=== PATIENT | female | born 1990 | race Caucasian/White ===

== ENCOUNTER 2019-02-15 12:22 | Emergency (ER) | payer BC ==
[2019-02-15] MEDS ORDERED: Sodium Chloride 0.9% 10 ML Syringe FLUSH PRN (12:51)
[2019-02-15] MEDS ORDERED: Sodium Chloride 0.9% 1,000 ML IV ONE (12:52)
[2019-02-15] MEDS ORDERED: Morphine 4 MG/ML Syringe IVPUSH ONE (12:53)
[2019-02-15] MEDS ORDERED: Ondansetron 4 MG/2 ML SDV IV ONE (12:53)
[2019-02-15] MEDS ORDERED: Ketorolac 30 MG/ML SDV IVPUSH ONE (12:53)
[2019-02-15] MEDS ORDERED: Iopamidol 612 MG/ML 75 ML Bottle IVPUSH ONE (12:57)
[2019-02-15 13:39] LABS: ANION GAP 13.5; CHLORIDE,CL 104 mmol/L (101-111); SODIUM,NA 134 mmol/L (135-145)
[2019-02-15 14:13] VITALS: BP 117/60
[2019-02-15] MEDS ORDERED: cefTRIAXone 1 GM in Sodium Chloride 0.9% 50 ML IV ONE (14:53)
[2019-02-15] MEDS ORDERED: metroNIDAZOLE/Normal Saline 500 MG in Premix Bag 100 BAG IV ONE (14:54)
--- NOTE | 2019-02-15 21:10 | ER ---
SUBJECTIVE: The patient is a 28-year-old female who is normally healthy. She has had some flu-like symptoms over the past week and has begun having abdominal pain over the last 5 days or so. She had some nonbloody diarrhea yesterday. She denies any . She denies any dysuria, no trauma, no fevers but some chills. Has diffuse body aches and feels fatigue and tiredness. Decreased appetite. No melena or hematochezia. No hematuria. She has had some nausea, no vomiting right now. No chest pain. No shortness of breath. No HEENT issues. No neck pain or stiffness. PAST MEDICAL HISTORY: Not significant, she has denied. She is healthy. CURRENT MEDICATIONS: Include: 1. Zoloft 100 mg p.o. daily. 2. control oral contraceptives. ALLERGIES: Denied. SOCIAL HISTORY: No substance abuse. REVIEW OF SYSTEMS: Chills, fatigue, weakness, and crampy bowel discomfort comes and goes, goes up to 7 to 9 when at its worst and then sometimes is down to 1. No dysuria. No melena or hematochezia. No trauma. Please see HPI. OBJECTIVE: Vital Signs: She is afebrile, heart rate 78, blood pressure 117/60 respiratory rate 18, oxygen is 99% on room air. General: Healthy appearing, somewhat pale, very good historian. A and O x3. GCS of 15. HEENT: Normocephalic and atraumatic. No jaundice. Mucous membranes are moist. Neck: Unremarkable. Chest: Unremarkable, it is clear. Cardiovascular: RRR. Abdominal Exam: Nonspecific, general mild tenderness to exam. The patient states that currently her abdominal spasm pain is at its lowest, but when she gets really bad bout, it goes up to as high as a 9. Back: No CVAT. She is atraumatic. Extremities: Unremarkable. LAB/STUDIES: White count was normal at 6.7, she has no anemia. Platelets are normal. PMNs are mildly elevated at 79.8. No band cells. Her urinalysis shows trace occult blood, negative nitrites, trace leukocyte esterase, many bacteria. Urinalysis is negative for beta-HCG. Her urine was yellow and slightly cloudy. Her sodium is 134, potassium 3.5, BUN and creatinine are not remarkable. Her lactic acid is normal at 1.2. Total bili and LFTs are all normal. Her amylase is also normal. Her urine was sent for culture. A contrasted abdominopelvic CT was performed. It did show nonspecific enteritis with swelling of the bowel wall from the cecum to the sigmoid colon, but no bowel obstruction. No free air. No diverticulitis, no abscesses. EMERGENCY ROOM COURSE: I did discuss all the findings with the patient and her attendant mother and gave them the options to just follow symptomatic treatment or begin antibiotics or follow up in clinic. I advised that it is difficult to know whether this is a bacterial source or just a viral source, although I would lean more towards a viral enteritis and the patient had flu-like symptoms lately. After discussing with her mother, the patient decided she would like the IV antibiotics and these were given including Flagyl 500 mg and Rocephin 1 g. The patient's pain was resolved with morphine and her nausea with Zofran. She also received a liter of IV fluids. She felt markedly improved, much less pale, good tone, talkative, smiling and was feeling much better at the time of her discharge. ASSESSMENT: 1. Abdominal pain with CT showing nonspecific enteritis in the large colon, from the cecum to the sigmoid colon. 2. Nausea. 3. Volume depletion. PLAN: Prescription for Flagyl, prescription of Bactrim, prescription of Zofran and Medrol Dosepak. Advised aggressive fluid hydration. Probiotics and yogurt. Use Tylenol and ibuprofen for discomfort. Take a day or 2 off from work as needed, and work excuse given. Lay low, rest, stay with family. See PCP as needed or return for any emergent issues. [facility] /[id number]
== END 2019-02-15 16:35 | disposition home or self-care (01) ==
LOC: DL.ED 12:22
DX: K52.9 Noninfective gastroenteritis and colitis, unspecified (principal); E86.9 Volume depletion, unspecified; Z79.899 Other long term (current) drug therapy; Z79.3 Long term (current) use of hormonal contraceptives
CPT/HCPCS: 36415; 74177; 80053; 81001; 81025; 82150; 83605; 85025; 87040; 87086; 96365; 96367; 96375; 99284; J0696; J1885; J2270; J2405; J3490; J7030; J7050; Q9967

== ENCOUNTER 2021-09-26 21:34 | Emergency (ER) | payer BC ==
[2021-09-26 21:49] VITALS: BP 135/75; PULSE 82
[2021-09-26] MEDS ORDERED: Cephalexin 500 MG Cap PO ONE (22:15)
--- NOTE | 2021-09-26 22:23 | EDM.PDOC ---
ED HPI GENERAL MEDICAL PROBLEM - General Chief Complaint: Genitourinary Problem Stated Complaint: 97.5*, 11 WK , POS UTI PER PT Time Seen by Provider: 09/26/21 21:40 Source of Information: Reports: Patient History Limitations: Reports: No Limitations - History of Present Illness INITIAL COMMENTS - FREE TEXT/NARRATIVE: ED with c/o LLQ pain dexribes as sharp, better now than previous concern for UTI . States has had many in past. now 11 weeks pg. US done in clinic last week , IUP not reported concerns. Denies cramping or any spotting. Last intercourse yesterday. 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 ED EXAM, RENAL/ - Physical Exam Exam: See Below Exam Limited By: No Limitations General Appearance: Alert, Anxious Ears: Normal External Exam Nose: Normal Inspection Throat/Mouth: Normal Inspection Head: Atraumatic, Normocephalic Neck: Full Range of Motion Respiratory/Chest: No Respiratory Distress Cardiovascular: Normal Peripheral Pulses, Regular Rate, Rhythm GI/Abdominal: Normal Bowel Sounds, Soft, Non-Tender (Female) Exam: Enlarged Uterus, Heart Tones (160's via doppler) Neurological: Alert, Oriented, Normal Cognition Psychiatric: Normal Affect, Normal Mood Skin Exam: Warm, Dry, Intact, Normal Color Course - Vital Signs Last Recorded V/S: Last Vital Signs Temp 97.8 F 09/26/21 21:39 Pulse 82 10/26/21 21:39 Resp 20 09/26/21 21:39 BP 135/75 09/26/21 21:39 Pulse Ox 97 09/26/21 21:39 - Orders/Labs/Meds Orders: Active Orders 24 hr Category Date Time Status CULTURE URINE [RM] Stat Lab 09/26/21 21:46 Received cephALEXin [Keflex] Med 09/26/21 22:15 Once 500 mg PO ONETIME ONE Labs: Laboratory Tests 09/26/21 Range/Units 21:46 Urine Color Yellow (YELLOW) Urine Appearance Clear (CLEAR) Urine pH 6.5 (5.0-9.0) Ur Specific [place] 1.015 (1.005-1.030) Urine Protein Negative (NEGATIVE) Urine Glucose (UA) Negative (NEGATIVE) Urine Ketones Negative (NEGATIVE) Urine Occult Blood Large H (NEGATIVE) Urine Nitrite Negative (NEGATIVE) Urine Bilirubin Negative (NEGATIVE) Urine Urobilinogen 0.2 (0.2-1.0) mg/dL Ur Leukocyte Esterase Trace H (NEGATIVE) Urine RBC 40-50 H (0-5) /HPF Urine WBC 0-5 (0-5/HPF) /HPF Ur Epithelial Cells Rare (NOT SEEN) /HPF Urine Bacteria Few (0-FEW/HPF) /HPF Departure - Departure Time of Disposition: 22:17 Disposition: Home, Self-Care 01 Condition: Good Clinical Impression: First trimester , UTI, Urinary tract infectious disease Abdominal pain Qualifiers: Abdominal location: left lower quadrant Qualified Code(s): R10.32 - Left lower quadrant pain - Discharge Information *PRESCRIPTION DRUG MONITORING PROGRAM REVIEWED*: No *COPY OF PRESCRIPTION DRUG MONITORING REPORT IN PATIENT RONNIE: No Instructions: Abdominal Pain During , [id number], Urinary Tract Infection, Adult, [id number] Additional Instructions: rest increase fluids follow up in clinic this week keflex 500mg twice daily Sepsis Event Note (ED) - Evaluation Sepsis Screening Result: No Definite Risk - Focused Exam Vital Signs: Vital Signs Temp Pulse Resp BP Pulse Ox 09/26/21 21:39 97.8 F 82 20 135/75 97 - My Orders Last 24 Hours: My Active Orders 09/26/21 21:46 CULTURE URINE [RM] Stat 09/26/21 22:15 cephALEXin [Keflex] 500 mg PO ONETIME ONE - Assessment/Plan Last 24 Hours: My Active Orders 10/26/21 21:46 CULTURE URINE [RM] Stat 09/26/21 22:15 cephALEXin [Keflex] 500 mg PO ONETIME ONE
== END 2021-09-26 22:22 | disposition home or self-care (01) ==
LOC: DL.ED 21:34
DX: O23.41 Unspecified infection of urinary tract in pregnancy, first trimester (principal); Z79.899 Other long term (current) drug therapy; Z3A.11 11 weeks gestation of pregnancy
CPT/HCPCS: 81001; 87086; 99284; A9270

== ENCOUNTER 2022-04-03 15:12 | Inpatient (IN) | payer OTHER ==
[~2022-04-03 15:12] MED LIST: EPINEPHrine 1 MG/ML SDV ONE; Sodium Bicarbonate 4.2% 2.5 MEQ/5 ML SDV ONE; Sodium Chloride 0.9% 20 ML SDV ONE; fentaNYL 100 MCG/2 ML SDV ITHECAL ONE
[2022-04-03] MEDS ORDERED: Tranexamic Acid 1,000 MG in Sodium Chloride 0.9% 100 ML IV PRN (17:39)
[2022-04-03] MEDS ORDERED: Methylergonovine 0.2 MG/1 ML Amp IM PRN (17:39)
[2022-04-03] MEDS ORDERED: Sodium Chloride 0.9% 10 ML Syringe FLUSH PRN ×2 (17:39→23:12)
[2022-04-03] MEDS ORDERED: Lactated Ringers 1,000 ML IV ONE (17:39)
[2022-04-03] MEDS ORDERED: Lidocaine 1% 30 ML SDV INJECT PRN (17:39)
[2022-04-03] MEDS ORDERED: Misoprostol 400 MCG (4 X 100 MCG TAB) RECTAL PRN (17:39)
[2022-04-03] MEDS ORDERED: Carboprost Tromethamine 250 MCG/1 ML Amp IM PRN (17:39)
[2022-04-03] MEDS ORDERED: Ondansetron 4 MG/2 ML SDV IVPUSH PRN (17:39)
[2022-04-03] MEDS ORDERED: Acetaminophen 325 MG Tab PO PRN ×2 (17:39→23:12)
[2022-04-03] MEDS ORDERED: Oxytocin/Normal Saline 30 UNIT/500 ML BAG IV SCH (17:45)
[2022-04-03] MEDS: Lactated Ringers 1,000 ML IV SCH ×2 (18:29→19:11)
[2022-04-03] MEDS ORDERED: EPINEPHrine 1 MG/ML SDV ONE (20:55)
[2022-04-03] MEDS ORDERED: Sodium Bicarbonate 4.2% 2.5 MEQ/5 ML SDV ONE (20:55)
[2022-04-03] MEDS ORDERED: fentaNYL 100 MCG/2 ML SDV ONE (20:55)
[2022-04-03] MEDS ORDERED: Simethicone 80 MG Tab.Chew PO PRN (23:12)
[2022-04-03] MEDS ORDERED: Oxytocin 10 Units/1 ML SDV IM PRN (23:12)
[2022-04-03] MEDS ORDERED: Benzocaine/Menthol 20%-0.5% Spray 78 GM Cannister TOP PRN (23:12)
[2022-04-04] MEDS: Ibuprofen 800 MG Tab PO PRN ×2 (02:33→21:12)
[2022-04-04] MEDS: Prenatal Multivitamin with Calcium/Folic Acid/Iron Tab PO SCH (08:42)
[2022-04-04] MEDS: Docusate Sodium 100 MG Cap PO PRN ×2 (08:42→21:13)
[2022-04-05] MEDS: Prenatal Multivitamin with Calcium/Folic Acid/Iron Tab PO SCH (08:32)
[2022-04-05] MEDS: Ibuprofen 800 MG Tab PO PRN (08:33)
[2022-04-05] MEDS: Docusate Sodium 100 MG Cap PO PRN (08:33)
[2022-04-05 09:37] VITALS: BP 129/67; PULSE 79
== END 2022-04-05 11:45 | disposition home or self-care (01) | DRG 806 ==
LOC: DL.OBCHECK 15:12 → DL.OB 18:06 → OBSVTOIN 22:47
PROVIDERS: ADMIT Family Medicine; ATTEND Family Medicine
PROC: 10D07Z6 Extraction of Products of Conception, Vacuum, Via Natural or Artificial Opening (ICD-10-PCS; principal; 2022-04-03)
PROC: 3E0R3BZ Introduction of Anesthetic Agent into Spinal Canal, Percutaneous Approach (ICD-10-PCS; 2022-04-03)
PROC: 00HU33Z Insertion of Infusion Device into Spinal Canal, Percutaneous Approach (ICD-10-PCS; 2022-04-03)
PROC: 0KQM0ZZ Repair Perineum Muscle, Open Approach (ICD-10-PCS; 2022-04-03)
DX: O99.02 Anemia complicating childbirth (principal); O99.12 Other diseases of the blood and blood-forming organs and certain disorders involving the immune mechanism complicating childbirth; Z37.0 Single live birth; D64.9 Anemia, unspecified; D69.6 Thrombocytopenia, unspecified; Z3A.37 37 weeks gestation of pregnancy; Z20.822 Contact with and (suspected) exposure to COVID-19; Z28.82 Immunization not carried out because of caregiver refusal
CPT/HCPCS: 01967; 36415; 59025; 59409; 81003; 82565; 82570; 83615; 84156; 84450; 84460; 84520; 84550; 85027; A9270-GY; J0171; J2405; J2590; J3010; J7120; U0002

== ENCOUNTER 2024-01-23 15:59 | Inpatient (IN) | payer OTHER ==
[2024-01-23] MEDS ORDERED: Misoprostol 400 MCG (4 X 100 MCG TAB) RECTAL PRN (17:32)
[2024-01-23] MEDS ORDERED: Tranexamic Acid 1,000 MG in Sodium Chloride 0.9% 100 ML IV PRN (17:32)
[2024-01-23] MEDS ORDERED: Methylergonovine 0.2 MG/1 ML Amp IM PRN (17:32)
[2024-01-23] MEDS ORDERED: Sodium Chloride 0.9% 10 ML Syringe FLUSH PRN (17:32)
[2024-01-23] MEDS ORDERED: Carboprost Tromethamine 250 MCG/1 ML Amp IM PRN (17:32)
[2024-01-23] MEDS ORDERED: Bupivacaine 0.25% 10 ML SDV ONE (17:35)
[2024-01-23] MEDS ORDERED: fentaNYL 100 MCG/2 ML SDV ONE (17:35)
[2024-01-23] MEDS: Lactated Ringers 1,000 ML IV ONE (17:44)
[2024-01-23] MEDS: Ondansetron 4 MG/2 ML SDV IVPUSH PRN (17:45)
[2024-01-23 17:48] LABS: HEMATOCRIT 39.9 % (37.0-47.0); HEMOGLOBIN 13.3 g/dL (12.0-16.0); MEAN CORPUSCULAR HEMOGLOBIN 30.2 pg (27.0-34.0); MEAN CORPUSCULAR HGB CONC 33.3 g/dL (33.0-35.0); MEAN CORPUSCULAR VOLUME 90.7 fL (80-100); RED BLOOD CELL COUNT 4.4 10^6/uL (4.2-5.4); WHITE BLOOD CELL COUNT,WBC 9.8 10^3/uL (5.0-10.0)
[2024-01-23] MEDS: Lactated Ringers 1,000 ML IV SCH (17:50)
[2024-01-23] MEDS ORDERED: ePHEDrine 50 MG/ML SDV IVPUSH PRN (17:59)
[2024-01-23] MEDS ORDERED: Phenylephrine HCl In 0.9% NaCl 1 MG/10 ML Syringe IVPUSH PRN (17:59)
[2024-01-23] MEDS ORDERED: Ropivacaine 200 MG in Premix Bag 1 BAG EPIDUR SCH (18:00)
[2024-01-23] MEDS: Oxytocin/Normal Saline 30 UNIT/500 ML BAG IV SCH (20:28)
[2024-01-23] MEDS ORDERED: Oxytocin 10 Units/1 ML SDV IM PRN (21:41)
[2024-01-23] MEDS ORDERED: Acetaminophen 325 MG Tab PO PRN (21:41)
[2024-01-23] MEDS ORDERED: Benzocaine/Menthol 20%-0.5% Spray 78 GM Cannister TOP PRN (21:41)
[2024-01-23] MEDS ORDERED: Witch Hazel Medicated Pads 100/Jar TOP PRN (21:41)
[2024-01-23] MEDS ORDERED: Simethicone 80 MG Tab.Chew PO PRN (21:41)
[2024-01-23] MEDS: Lidocaine 1% 30 ML SDV INJECT ONE (23:30)
[2024-01-24] MEDS: Ibuprofen 800 MG Tab PO PRN (03:10)
[2024-01-24] MEDS: Docusate Sodium 100 MG Cap PO PRN (08:25)
[2024-01-24] MEDS: Prenatal Multivitamin with Calcium/Folic Acid/Iron Tab PO SCH (08:25)
[2024-01-24] MEDS: Acetaminophen 325 MG Tab PO PRN (19:30)
[2024-01-25] MEDS ORDERED: Bupivacaine 0.25% 10 ML SDV EPIDUR ONE (10:54)
[2024-01-25] MEDS ORDERED: Ropivacaine 100 ML EPIDUR ONE (10:54)
[2024-01-25] MEDS ORDERED: fentaNYL 100 MCG/2 ML SDV EPIDUR ONE (10:54)
[2024-01-25 11:09] VITALS: BP 126/69; PULSE 89
== END 2024-01-25 10:55 | disposition home or self-care (01) | DRG 807 ==
LOC: DL.OBCHECK 15:59 → UNDOADMOB 16:30 → DL.OB 16:30 → OBSVTOIN 20:22 → DL.OB 20:22
PROVIDERS: ADMIT Family Medicine; ATTEND Family Medicine
PROC: 10E0XZZ Delivery of Products of Conception, External Approach (ICD-10-PCS; principal; 2024-01-23)
PROC: 10907ZC Drainage of Amniotic Fluid, Therapeutic from Products of Conception, Via Natural or Artificial Opening (ICD-10-PCS; 2024-01-23)
DX: O99.344 Other mental disorders complicating childbirth (principal); Z37.0 Single live birth; F32.A Depression, unspecified; Z3A.39 39 weeks gestation of pregnancy; O67.9 Intrapartum hemorrhage, unspecified
CPT/HCPCS: 01967; 36415; 51702; 59025; 85027; A9270-GY; J2405; J2590; J2795; J3010; J3490; J7120